=== PATIENT | female | born 1990 | race Caucasian/White ===

== ENCOUNTER → 2019-07-31 | Outpatient (CLI) | payer OTHER ==
--- NOTE | 2019-08-01 08:12 | XR ---
Right foot HISTORY: Pain and swelling second toe 3 views of the right foot Bone mineralization, joint spaces and alignment are maintained. Soft tissue swelling is present. IMPRESSION: No fracture or dislocation is evident. Soft tissue swelling.
== END | disposition home or self-care (01) ==
LOC: RAD 18:51
PROVIDERS: ATTEND Pediatrics
DX: M79.89 Other specified soft tissue disorders (principal)

== ENCOUNTER → 2020-01-15 | Outpatient (CLI) | payer OTHER ==
--- NOTE | 2020-01-15 15:16 | XR ---
EXAMINATION TYPE: XR chest 2V DATE OF EXAM: 01/15/2020 COMPARISON: NONE TECHNIQUE: PA and lateral views submitted. HISTORY: Pain FINDINGS: The lungs are clear and there is no pneumothorax, pleural effusion, or focal pneumonia. Heart size mildly prominent. No overt failure. There is a subtle scoliotic curvature of the spine. IMPRESSION: 1. No acute process. Correlate for mild cardiomegaly.
--- NOTE | 2020-01-15 15:18 | XR ---
EXAMINATION TYPE: XR facial bones complete DATE OF EXAM: 01/15/2020 COMPARISON: NONE HISTORY: Pain TECHNIQUE: 3 views submitted FINDINGS: There is asymmetric opacification the right hemithorax. Prominent lucency involving the hipolito al plate. IMPRESSION: 1. Asymmetric opacification the right maxillary sinus questionable defect involving the nasal bone re commend CT of the facial bones. A Yellow level critical message alert has been initiated for Karosn Harp DO via the [employer] Critical Results System on 01/15/2020 3:15 PM. This message alert has been sent to Karson carrero DO via the preferences provided by the clinician for the receipt of Radiology Critical Findings. Message ID [id number].
== END | disposition home or self-care (01) ==
LOC: RAD 14:39
PROVIDERS: ATTEND Family Medicine
DX: S09.93XD Unspecified injury of face, subsequent encounter (principal); S00.83XD Contusion of other part of head, subsequent encounter; S03.41XS Sprain of jaw, right side, sequela
CPT/HCPCS: 70150; 71046

== ENCOUNTER → 2020-01-23 | Outpatient (CLI) | payer OTHER ==
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
== END | disposition home or self-care (01) ==
LOC: RADCTMAIN 06:46
PROVIDERS: ATTEND Family Medicine
DX: S09.93XD Unspecified injury of face, subsequent encounter (principal)
CPT/HCPCS: 70486

== ENCOUNTER → 2021-01-15 | Outpatient (CLI) | payer OTHER ==
--- NOTE | 2021-01-15 13:25 | XR ---
EXAMINATION TYPE: XR ankle complete LT DATE OF EXAM: 01/15/2021 COMPARISON: NONE HISTORY: Pain FINDINGS: Three views of the ankle demonstrate the ankle mortise to be intact and symmetric. The joint spaces are preserved. The osseous structures are intact. IMPRESSION: 1. No definite acute fracture or dislocation, if symptoms persist follow-up study in 7 to 10 days wou ld be suggested.
--- NOTE | 2021-01-15 13:30 | XR ---
EXAMINATION TYPE: XR foot complete LT DATE OF EXAM: 01/15/2021 COMPARISON: NONE HISTORY: Pain TECHNIQUE: Three views are submitted. FINDINGS: The osseous structures are intact. There is no acute fracture or dislocation. Joint spaces are p reserved. IMPRESSION: 1. No acute fracture or dislocation. If symptoms persist, follow-up exam in 7 to 10 days could be ob tained.
== END | disposition home or self-care (01) ==
LOC: RADXRMAIN 12:55
PROVIDERS: ATTEND Physician Assistant
DX: M25.572 Pain in left ankle and joints of left foot (principal)